=== PATIENT | male | born 1970 | race Caucasian/White ===

== ENCOUNTER → 2021-11-01 | Outpatient (CLI) | payer OTHER ==
[~2021-11-01] MED LIST: ASPIRIN EC81 MG PO; ASPIRIN81 MG PO; ATORVASTATIN CA20 MG PO; BRILINTA90 MG PO; CRESTOR10 MG PO; HABITROL 21 MG P1 EA TD; LISINOPRIL2.5 MG PO; LOPRESSOR 25 MG25 MG PO; NITROGLYCERIN0.4 MG SL; NORCO 5-325 TA1 EACH PO; PANTOPRAZOLE SO40 MG PO; PROTONIX40 MG PO; ZOFRAN ODT 4 MG4 MG PO
== END ==
LOC: RAD 10:10
DX: R07.81 Pleurodynia (principal); J98.11 Atelectasis
CPT/HCPCS: 71046